=== PATIENT | male | born 1965 | race African-American/Black ===

== ENCOUNTER → 2017-01-04 | Outpatient (CLI) | payer OTHER ==
[2016-12-31 12:15] VITALS: BMI 46.1
[2017-01-04 12:27] VITALS: BP 157/95; PULSE 89; RESP 16; TEMP 98.1
--- NOTE | 2017-01-04 12:52 | P.HPIM ---
History of Present Illness H&P Date: 01/04/17 Chief Complaint: low back pain This is a 51-year-old obese AAM referred by Dr. Odonnell for chronic pain in low back and legs with numbness/tingling in legs and in feet. Patient has been taking medications from primary care physician including [place] medications with some relief, but has not had any since September. Patient denies adverse drug effects from medications. Patient also denies new-onset weakness, bowel/ bladder incontinence, or any other signs or symptoms of cauda equina syndrome. There are no signs of acute intoxication, and no indications of medication diversion or overuse. Patient states that he did use marijuana recently to help with the pain, in the last week or so. Patient notes that pain worsens significantly with standing and walking and improves with sitting, rest, ice, and medication. Patient has used several types of medications for pain, including NSAIDS, OPIOIDS, TRAMADOL. Patient HAS NOT had surgery. Patient HAS had injections previously (LESI at [facility] which gave him relief for approximately one month). Patient HAS NOT had physical therapy recently. In addition to above, 13-point review of systems is also negative for chest pain , shortness of breath, changes in vision, changes in hearing, new onset weakness , abdominal pain, diarrhea, extreme fatigue, malaise, fever, skin changes, homicidal or suicidal ideation, or bowel or bladder incontinence. Vital Signs: Reviewed in EMR Gen: WDWN, AAOx3, NAD HEENT: NCAT, EOMI, hearing grossly normal Pulm: resp unlabored Abd: soft, NT, ND Neck: supple, trachea midline ROM in flexion lumbar spine: reduced ROM in extension lumbar spine: reduced Lumbar paravertebral tenderness: + Facet loading: + bilateral SI joint tenderness: + LLE Juanito's test: + bilateral Straight leg raise: + LLE > RLE at 20 degrees Neuro: CN II-XII grossly intact, muscle strength lower extremities PRESERVED Past Medical History Past Medical History: Diabetes Mellitus, Hyperlipidemia, Hypertension Additional Past Medical History / Comment(s): herniated disc, back pain History of Any Multi-Drug Resistant Organisms: None Reported Past Surgical History: Orthopedic Surgery Additional Past Surgical History / Comment(s): SX RT HAND, repair torn meniscus rt knee Past Anesthesia/Blood Transfusion Reactions: No Reported Reaction Past Psychological History: No Psychological Hx Reported Smoking Status: Former smoker Past Alcohol Use History: Occasional Additional Past Alcohol Use History / Comment(s): smoked 6-7 years quit 25 years ago Past Drug Use History: Marijuana Additional Drug Use History / Comment(s): ADMITS TO 2-3 "BLUNTS" A WEEK - Past Family History Mother Family Medical History: No Reported History Medications and Allergies Home Medications Medication Instructions Recorded Confirmed Type amLODIPine [Norvasc] 1 tab PO DAILY 02/12/14 01/04/17 History metFORMIN HCL [Glucophage] 2,000 mg PO BID 02/12/14 01/04/17 History Lisinopril [Zestril] 20 mg PO DAILY 10/31/14 01/04/17 History Allergies Allergy/AdvReac Type Severity Reaction Status Date / Time No Known Allergies Allergy Verified 01/04/17 12:16 Results Comments: MRI of the lumbar spine dated 03/12/2016 demonstrates multiple disc bulges at the L2-L3, L3-L4, L4-L5, and L5-S1 levels. The worst of these herniations at the L4-L5 level with superimposed annular tear. There is also a right paracentral disc protrusion of the L5-S1 level with a superimposed annular tear. There is mild facet arthropathy at essentially every level in the lumbar spine. There is 7.0 mm synovial cyst at the L4-L5 right facet joint. Overall there is no significant central canal stenosis but there may be some radiculopathy at the L5 left L5 nerve root in the right S1 nerve root. The student spondylosis and facet arthropathy are causing moderate narrowing of the bilateral neural foramina at multiple levels in the lumbar spine. 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 Explanation: Opioid and psychological risk scores were reviewed. Diagnoses , prognoses, and multiple treatment options including but not limited to physical therapy, interventional therapies, adjuvant medical therapies, narcotic medication therapies, and surgery were discussed with the patient and all questions were answered to the patient's satisfaction. 2. Opioid agreement: no opioids prescribed today, patient recently used THC 3. Counseling: The patient was counseled extensively on BODY MASS INDEX, EXERCISE. Specifically, the patient was instructed regarding the importance of smoking cessation, obesity, and exercise in the context of both chronic pain and overall health. I instructed the patient to exercise at least 20 minutes per day 4. Procedures: LESI in future after patient completes physical therapy 5. Consultations: physical therapy 6. Investigations: none 7. Medications: Topamax for diabetic neuropathy symptoms and to help with weight loss 8. Disposition: f/u 6-8 weeks after PT PQRS measures: 1-Patient's medications are documented in the chart. 2-Tobacco use is negative, counseling given 3-Patient has not had a pneumococcal vaccine. 4-Advanced care planning discussed, patient unable to give. 5-Opioid contract NOT signed with the patient. 6-Pain positive, follow-up visit or procedure scheduled 7-Patient's blood pressure measured and documented, and patient will follow up with the primary care due to hypertension. 8-Patient's weight was measured, and body mass index ABOVE the normal limits, and counseling was done. Patient instructed to follow up with PCP. 9-Patient WAS NOT identified as an unhealthy alcohol use Time with Patient: Greater than 30
== END ==
LOC: PNWHC3 10:51
PROVIDERS: ATTEND Anesthesiology
DX: M48.06 Spinal stenosis, lumbar region (principal); M99.73 Connective tissue and disc stenosis of intervertebral foramina of lumbar region; M51.26 Other intervertebral disc displacement, lumbar region; E66.01 Morbid (severe) obesity due to excess calories; E11.9 Type 2 diabetes mellitus without complications; Z87.891 Personal history of nicotine dependence; Z79.899 Other long term (current) drug therapy
CPT/HCPCS: 99211

== ENCOUNTER 2017-07-23 09:17 | Emergency (ER) | payer OTHER ==
[2017-07-23 09:23] VITALS: BP 168/89; PULSE 87; RESP 16; TEMP 99.3
--- NOTE | 2017-07-23 10:13 | ED ---
ENT HPI - General Chief complaint: ENT Stated complaint: Ear Pain Time Seen by Provider: 07/23/17 09:26 Source: patient, RN notes reviewed Mode of arrival: ambulatory Limitations: no limitations - Related Data Home Medications Medication Instructions Recorded Confirmed amLODIPine [Norvasc] 1 tab PO DAILY 02/12/14 01/04/17 metFORMIN HCL [Glucophage] 2,000 mg PO BID 02/12/14 01/04/17 Lisinopril [Zestril] 20 mg PO DAILY 10/31/14 01/04/17 Previous Rx's Medication Instructions Recorded Topiramate [Topamax] 50 mg PO BID #120 tab 01/04/17 Amoxicillin 875 mg PO Q12HR #20 tablet 07/23/17 Fluticasone Nasal [place] [Flonase 2 spr EA NOSTRIL DAILY #1 bottle 07/23/17 Nasal [place]] Allergies Allergy/AdvReac Type Severity Reaction Status Date / Time No Known Allergies Allergy Verified 07/23/17 09:23 Review of Systems ROS Statement: Those systems with pertinent positive or pertinent negative responses have been documented in the HPI. ROS Other: All systems not noted in ROS Statement are negative. Past Medical History Past Medical History: Diabetes Mellitus, Hyperlipidemia, Hypertension Additional Past Medical History / Comment(s): herniated disc, back pain History of Any Multi-Drug Resistant Organisms: None Reported Past Surgical History: Orthopedic Surgery Additional Past Surgical History / Comment(s): SX RT HAND, repair torn meniscus rt knee Past Anesthesia/Blood Transfusion Reactions: No Reported Reaction Past Psychological History: No Psychological Hx Reported Smoking Status: Former smoker Past Alcohol Use History: Occasional Past Drug Use History: Marijuana - Past Family History Mother Family Medical History: No Reported History General Exam Limitations: no limitations Course Vital Signs 07/23/17 09:21 Temperature 99.3 F Pulse Rate 87 Respiratory 16 Rate Blood Pressure 168/89 O2 Sat by Pulse 98 Oximetry Disposition Clinical Impression: Eustachian tube dysfunction, Otitis media Disposition: HOME SELF-CARE Condition: Stable Instructions: Earache (ED) Additional Instructions: Please return to the Emergency Department if symptoms worsen or any other concerns. Prescriptions: Amoxicillin 875 mg PO Q12HR #20 tablet Fluticasone Nasal [place] [Flonase Nasal [place]] 2 spr EA NOSTRIL DAILY #1 bottle Referrals: Cal Odonnell Jr, DO [Primary Care Provider] - 1-2 days Time of Disposition: 10:13
--- NOTE | 2017-07-23 10:25 | ED ---
ENT HPI - General Chief complaint: ENT Stated complaint: Ear Pain Time Seen by Provider: 07/23/17 09:26 Source: patient, RN notes reviewed Mode of arrival: ambulatory Limitations: no limitations - History of Present Illness Initial comments: 51-year-old male present emergency department for left ear pain. Patient states the pain has been present last couple days. Patient states it feels like pressure feeling A pop. Denies fever or chills. Denies any headache or dizziness. Denies any pain surrounding his ear. Denies sore throat. No shortness breath no chest pain. - Related Data Home Medications Medication Instructions Recorded Confirmed amLODIPine [Norvasc] 1 tab PO DAILY 02/12/14 01/04/17 metFORMIN HCL [Glucophage] 2,000 mg PO BID 02/12/14 01/04/17 Lisinopril [Zestril] 20 mg PO DAILY 10/31/14 01/04/17 Previous Rx's Medication Instructions Recorded Topiramate [Topamax] 50 mg PO BID #120 tab 01/04/17 Amoxicillin 875 mg PO Q12HR #20 tablet 07/23/17 Fluticasone Nasal [place] [Flonase 2 spr EA NOSTRIL DAILY #1 bottle 07/23/17 Nasal [place]] Allergies Allergy/AdvReac Type Severity Reaction Status Date / Time No Known Allergies Allergy Verified 07/23/17 09:23 Review of Systems ROS Statement: Those systems with pertinent positive or pertinent negative responses have been documented in the HPI. ROS Other: All systems not noted in ROS Statement are negative. Past Medical History Past Medical History: Diabetes Mellitus, Hyperlipidemia, Hypertension Additional Past Medical History / Comment(s): herniated disc, back pain History of Any Multi-Drug Resistant Organisms: None Reported Past Surgical History: Orthopedic Surgery Additional Past Surgical History / Comment(s): SX RT HAND, repair torn meniscus rt knee Past Anesthesia/Blood Transfusion Reactions: No Reported Reaction Past Psychological History: No Psychological Hx Reported Smoking Status: Former smoker Past Alcohol Use History: Occasional Past Drug Use History: Marijuana - Past Family History Mother Family Medical History: No Reported History General Exam Limitations: no limitations General appearance: alert, in no apparent distress Head exam: Present: atraumatic, normocephalic, normal inspection Eye exam: Present: normal appearance, PERRL, EOMI. Absent: scleral icterus, conjunctival injection, periorbital swelling ENT exam: Present: normal oropharynx, mucous membranes moist, normal external ear exam, other (No mastoid tenderness). Absent: TM's normal bilaterally (Mild fluid noted left TM, mild erythema) Neck exam: Present: normal inspection, full ROM. Absent: tenderness, meningismus, lymphadenopathy Respiratory exam: Present: normal lung sounds bilaterally. Absent: respiratory distress, wheezes, rales, rhonchi, stridor Cardiovascular Exam: Present: regular rate, normal rhythm, normal heart sounds. Absent: systolic murmur, diastolic murmur, rubs, gallop, clicks Course Vital Signs 07/23/17 09:21 Temperature 99.3 F Pulse Rate 87 Respiratory 16 Rate Blood Pressure 168/89 O2 Sat by Pulse 98 Oximetry Medical Decision Making - Medical Decision Making 51-year-old male present emergency department for left ear pain. Patient's symptoms more consistent with eustachian tube dysfunction there is mild erythema. Patient we given Flonase advised take [id number] decongestant and was given antibiotic if no improvement. Return parameters were discussed. Disposition Clinical Impression: Eustachian tube dysfunction, Otitis media Disposition: HOME SELF-CARE Condition: Stable Instructions: Earache (ED) Additional Instructions: Please return to the Emergency Department if symptoms worsen or any other concerns. Prescriptions: Amoxicillin 875 mg PO Q12HR #20 tablet Fluticasone Nasal [place] [Flonase Nasal [place]] 2 spr EA NOSTRIL DAILY #1 bottle Referrals: Cal Odonnell Jr, [Primary Care Provider] - 1-2 days
== END 2017-07-23 10:31 | disposition home or self-care (01) ==
LOC: EC 09:17
DX: H69.92 Unspecified Eustachian tube disorder, left ear (principal); H66.92 Otitis media, unspecified, left ear; E11.9 Type 2 diabetes mellitus without complications; I10 Essential (primary) hypertension; Z87.891 Personal history of nicotine dependence; Z79.84 Long term (current) use of oral hypoglycemic drugs; Z79.899 Other long term (current) drug therapy
CPT/HCPCS: 99282

== ENCOUNTER 2017-12-01 07:25 | Emergency (ER) | payer OTHER ==
[2017-12-01 07:50] VITALS: BP 145/87; RESP 18
[2017-12-01 08:16] LABS: Appearance,Urine Clear (Clear); Bilirubin,Urine Negative (Negative); Blood,Urine Negative (Negative); Color,Urine Yellow; Glucose,Urine (UA) Negative (Negative); Ketones,Urine Negative (Negative); Leukocyte Esterase,Urine Large (Negative); Mucus,Urine Occasional /hpf; Nitrite,Urine Negative (Negative); PH, Urine 5.5 (5.0-8.0); Protein,Urine Trace (Negative); RBC,Urine 3 /hpf (0-5); Specific Gravity,Urine 1.022 (1.001-1.035); Squamous Epithelial Cell,Urine <1 /hpf (0-4); WBC,Urine 61 /hpf (0-5)
[2017-12-01] MEDS ORDERED: cefTRIAXone 250 MG VIAL IM STA ×2 (08:19→08:53)
[2017-12-01] MEDS ORDERED: AZITHROMYCIN 500 MG TAB PO STA (08:19)
--- NOTE | 2017-12-01 08:43 | ED ---
Male Urogenital HPI - General Chief complaint: Urogenital Stated complaint: Possible UTI Time Seen by Provider: 12/01/17 07:52 Source: patient, RN notes reviewed, old records reviewed Mode of arrival: ambulatory Limitations: no limitations - History of Present Illness Initial comments: This Patient is a 52-year-old male chief complaint of penile discharge and dysuria. He reports taht that he's concerned for sexually transmitted infection. He states that he is had the symptoms for the past few days. He denies any rashes or lesions in the groin. He denies any testicular swelling or scrotal swelling. - Related Data Home Medications Medication Instructions Recorded Confirmed amLODIPine [Norvasc] 10 mg PO DAILY 02/12/14 12/01/17 metFORMIN HCL [Glucophage] 1,000 mg PO BID 02/12/14 12/01/17 Lisinopril 40 mg PO DAILY 12/01/17 12/01/17 Previous Rx's Medication Instructions Recorded Topiramate [Topamax] 50 mg PO BID #120 tab 01/04/17 Doxycycline [Vibramycin] 100 mg PO Q12HR 14 Days 12/01/17 Allergies Allergy/AdvReac Type Severity Reaction Status Date / Time No Known Allergies Allergy Verified 12/01/17 08:24 Review of Systems ROS Statement: Those systems with pertinent positive or pertinent negative responses have been documented in the HPI. ROS Other: All systems not noted in ROS Statement are negative. Past Medical History Past Medical History: Diabetes Mellitus, Hyperlipidemia, Hypertension Additional Past Medical History / Comment(s): herniated disc, back pain History of Any Multi-Drug Resistant Organisms: None Reported Past Surgical History: Orthopedic Surgery Additional Past Surgical History / Comment(s): SX RT HAND, repair torn meniscus rt knee Past Anesthesia/Blood Transfusion Reactions: No Reported Reaction Past Psychological History: No Psychological Hx Reported Smoking Status: Former smoker Past Alcohol Use History: Occasional Past Drug Use History: Marijuana - Past Family History Mother Family Medical History: No Reported History General Exam - General Exam Comments Initial Comments: This is a 52 year old male with CC of penile discharge and dysuria. No acute distress. Limitations: no limitations General appearance: alert, in no apparent distress Head exam: Present: atraumatic, normocephalic, normal inspection Eye exam: Present: normal appearance, PERRL, EOMI. Absent: scleral icterus, conjunctival injection, periorbital swelling ENT exam: Present: normal exam, mucous membranes moist Neck exam: Present: normal inspection. Absent: tenderness, meningismus, lymphadenopathy Respiratory exam: Present: normal lung sounds bilaterally. Absent: respiratory distress, wheezes, rales, rhonchi, stridor Cardiovascular Exam: Present: regular rate, normal rhythm, normal heart sounds. Absent: systolic murmur, diastolic murmur, rubs, gallop, clicks GI/Abdominal exam: Present: soft, normal bowel sounds. Absent: distended, tenderness, guarding, rebound, rigid exam: Present: normal inspection, urethral discharge, other Extremities exam: Present: normal inspection, full ROM, normal capillary refill. Absent: tenderness, pedal edema, joint swelling, calf tenderness Neurological exam: Present: alert, oriented X3, CN II-XII intact Psychiatric exam: Present: normal affect, normal mood Course Vital Signs 12/01/17 12/01/17 07:48 09:02 Temperature 97.8 F 97.6 F Pulse Rate 90 82 Respiratory 18 18 Rate Blood Pressure 145/87 O2 Sat by Pulse 98 Oximetry Medical Decision Making - Medical Decision Making 52-year-old male with history of penile discharge and dysuria. Concern for STD. Region has no pain in his testicle noticed regular swelling. At this time patient will be treated with Rocephin and azithromycin. I will also treat him with doxycycline for two weeks. Discussed appropriate follow up with primary care provider. Discussed telling a sexual context of concern for STD. All questions answered and return parameters discussed. - Lab Data Lab Results 12/01/17 Range/Units 07:55 Urine Color Yellow Urine Appearance Clear (Clear) Urine pH 5.5 (5.0-8.0) Ur Specific [place] 1.022 (1.001-1.035) Urine Protein Trace H (Negative) Urine Glucose (UA) Negative (Negative) Urine Ketones Negative (Negative) Urine Blood Negative (Negative) Urine Nitrite Negative (Negative) Urine Bilirubin Negative (Negative) Urine Urobilinogen 2.0 (<2.0) mg/dL Ur Leukocyte Esterase Large H (Negative) Urine RBC 3 (0-5) /hpf Urine WBC 61 H (0-5) /hpf Ur Squamous Epith Cells <1 (0-4) /hpf Urine Mucus Occasional H (None) /hpf Disposition Clinical Impression: UTI (urinary tract infection), Concern about STD in male without diagnosis Disposition: HOME SELF-CARE Condition: Good Instructions: Urinary Tract Infection in Men (ED) Additional Instructions: Patient denies to follow-up with primary care provider. Repeat urinalysis in the next 2 weeks. If refrain from sexual intercourse for a minimum of 2 weeks. Inform all sexual partners of possible exposure to STD. Prescriptions: Doxycycline [Vibramycin] 100 mg PO Q12HR 14 Days Referrals: Cal Odonnell Jr, [Primary Care Provider] - 1-2 days Time of Disposition: 08:42
[2017-12-01 09:16] VITALS: PULSE 82; TEMP 97.6
[2017-12-02 14:36] LABS: C. trachomatis,PCR Negative (Neg,Equiv); Chlamydia trachomatis Source Urine; N. gonorrhoeae,PCR Positive (Neg,Equiv); Neisseria Source Urine
== END 2017-12-01 09:02 | disposition home or self-care (01) ==
LOC: EC 07:25
DX: N39.0 Urinary tract infection, site not specified (principal); I10 Essential (primary) hypertension; E11.9 Type 2 diabetes mellitus without complications; Z79.84 Long term (current) use of oral hypoglycemic drugs; Z79.899 Other long term (current) drug therapy; Z87.891 Personal history of nicotine dependence
CPT/HCPCS: 81001; 87491; 87591; 87086; 99284; 96372; J0696

== ENCOUNTER → 2023-04-06 | Outpatient (CLI) | payer OTHER | END | disposition home or self-care (01) | LOC: LABWHC1 10:42 | PROVIDERS: ATTEND Internal Medicine | DX: Z12.11 Encounter for screening for malignant neoplasm of colon (principal); E11.65 Type 2 diabetes mellitus with hyperglycemia | CPT/HCPCS: 36415; 83036 ==

== ENCOUNTER → 2023-06-15 | Outpatient (CLI) | payer OTHER ==
--- NOTE | 2023-06-15 14:57 | XR ---
EXAMINATION TYPE: XR lumbar spine with bend/flex DATE OF EXAM: 06/15/2023 CLINICAL HISTORY: pain COMPARISON: NONE TECHNIQUE: Frontal, lateral, and oblique images of the lumbar spine are obtained. Flexion and extensi on views are also submitted. FINDINGS: There are 5 lumbar type vertebral bodies identified. The lumbar spine shows satisfactory alignment without evidence of acute fracture or dislocation. Vertebral body heights are within normal limits. Mild multilevel degenerative disc space narrowing. Large ventral osteophytes noted. Moderate facet joint arthropathy. Alignment is stable at neutral, flexion and extension. The overlying soft tissue appears unremarkable. IMPRESSION: No acute fracture or dislocation is seen in the lumbar spine.ICD 10 NO FRACTURE, INITIAL EVALUATION
== END | disposition home or self-care (01) ==
LOC: RADXRMAIN 11:20
PROVIDERS: ATTEND Pain Medicine Interventional Pain Medicine
DX: M51.16 Intervertebral disc disorders with radiculopathy, lumbar region (principal); M47.26 Other spondylosis with radiculopathy, lumbar region
CPT/HCPCS: 72114